=== PATIENT | female | born 1950 | race Caucasian/White ===

== ENCOUNTER 2024-03-29 09:32 | Emergency (ER) | payer MEDICARE, BC ==
[2024-03-29] MEDS: Aspirin 81 MG Tab.Chew PO ONE (09:35)
[2024-03-29 10:08] LABS: BASOPHILS PERCENT AUTO 0.5 % (0.2-1.2); EOSINOPHILS ABSOLUTE AUTO 0.1 x10^3/uL (0.0-0.5); EOSINOPHILS PERCENT AUTO 2.2 % (0.0-4.0); HEMATOCRIT 44.5 % (33.0-47.0); HEMOGLOBIN 15.6 g/dL (12.0-16.0); IMMATURE GRAN ABSOLUTE AUTO 0.01 x10^3/uL (0.00-0.07); LYMPHOCYTES ABSOLUTE AUTO 1.6 x10^3/uL (1.0-4.8); LYMPHOCYTES PERCENT AUTO 24.5 % (25.0-50.0); MEAN CORPUSCULAR HEMOGLOBIN 33.1 pg (26.0-32.0); MEAN CORPUSCULAR HGB CONC 35.1 g/dL (32.0-36.0); MEAN CORPUSCULAR VOLUME 94.5 fL (78.0-93.0); MONOCYTES ABSOLUTE AUTO 0.9 x10^3/uL (0.0-0.8); MONOCYTES PERCENT AUTO 13.6 % (2.0-11.0); NEUTROPHILS ABSOLUTE AUTO 3.8 x10^3/uL (1.8-7.7); PLATELET COUNT,PLT 209 x10^3/uL (130-400); RED BLOOD CELL COUNT 4.71 x10^6/uL (4.00-5.50); WHITE BLOOD CELL COUNT,WBC 6.4 x10^3/uL (4.0-10.0)
[2024-03-29 10:19] LABS: A/G RATIO 1.06; ALANINE AMINOTRANSFERASE,ALT 24 U/L (14-59); ALBUMIN 3.8 g/dL (3.4-5.0); ALKALINE PHOSPHATASE 77 U/L (46-116); ANION GAP 10.5 mmol/L (5-15); ASPARTATE AMNIOTRANSFERASE,AST 15 U/L (15-37); BILIRUBIN TOTAL 0.7 mg/dL (0.2-1.0); BLOOD UREA NITROGEN,BUN 12 mg/dL (7-18); CALCIUM 9.6 mg/dL (8.5-10.1); CARBON DIOXIDE,CO2 31 mmol/L (21-32); CHLORIDE,CL 100 mmol/L (98-107); CREATININE 0.8 mg/dL (0.55-1.02); ESTIMATED GFR 78 mL/min (>=60); GLUCOSE RANDOM 112 mg/dL (70-99); POTASSIUM,K 3.5 mmol/L (3.5-5.1); PROTEIN TOTAL,TP 7.4 g/dL (6.4-8.2); SODIUM,NA 138 mmol/L (136-145)
== END 2024-03-29 10:39 | disposition home or self-care (01) ==
LOC: VM.ED 09:32
DX: R07.89 Other chest pain (principal); Z88.0 Allergy status to penicillin; Z79.899 Other long term (current) drug therapy
CPT/HCPCS: 71045; 80053; 84484; 85025; 93005; 99285; A9270; 93010; 99284